=== PATIENT | female | born 1935 | race Two or more races ===

== ENCOUNTER 2017-01-10 15:16 | Inpatient (IN) | payer MEDICAID, MEDICARE ==
[~2017-01-10] VITALS: Ht 165.1 cm; Wt 67.6 kg
--- NOTE | 2017-01-10 18:05 | NUR ---
SPOKE TO SISTER OF PATIENT AND SISTER STATES SHE WILL COME SEE PATIENT TOMORROW
[2017-01-10] MEDS ORDERED: ALBU2.5V38 IH (19:03)
[2017-01-10] MEDS ORDERED: METO25TA6 PO (19:03)
[2017-01-10] MEDS ORDERED: APIX2.5T PO (19:03)
[2017-01-10] MEDS ORDERED: LEVO100T9 PO (19:03)
[2017-01-10] MEDS ORDERED: ACET-868 PO (19:03)
[2017-01-10] MEDS ORDERED: CARB-93 PO (19:03)
[2017-01-10] MEDS ORDERED: VALP250C3 PO (19:03)
[2017-01-10] MEDS ORDERED: LEVE500T9 PO (19:03)
[2017-01-10] MEDS ORDERED: SENN8.6T6 PO (19:03)
[2017-01-10] MEDS ORDERED: CHOL200026 PO (19:03)
[2017-01-10] MEDS ORDERED: OMEG1CAP55 PO (19:03)
[2017-01-10] MEDS ORDERED: MULT-213 PO (19:03)
[2017-01-10] MEDS ORDERED: POLY119P2 PO (19:03)
--- NOTE | 2017-01-10 20:09 | NUR ---
81 Y/O FEMALE, BANGLADESHI SPEAKING ONLY, RESTING COMFORTABLY WITHOUT S/S OF DISTRESS. CONTINUE TO MONITOR.
--- NOTE | 2017-01-10 21:50 | NUR ---
MS/RN NOTES RECEIVED PT. FROM ER VIA ALTAGRACIA. PT. IS AWAKE, ALERT AND ORIENTED X1. BREATHING EVEN AND UNLABORED ON ROOM AIR. NO SOB, RESPIRATORY DISTRESS OR COMPLAINTS OF PAIN NOTED AT THIS TIME. VITAL SIGNS STABLE. ORIENTED PT. TO ROOM. BED LOCKED AND IN LOWEST POSITION, SIDE RAILS UP X3, CALL LIGHT WITHIN REACH. AWAITING ADMITTING ORDERS. WILL CONTINUE TO MONITOR.
--- NOTE | 2017-01-10 23:30 | NUR ---
MS/RN NOTES STILL AWAITING ADMITTING ORDERS. CALLED [facility]. DR. NERI DIDN'T ANSWER, [facility] SPECIAL[facility] STATED THEY WOULD PAGE DR. NERI. . WILL CONTINUE TO WAIT FOR MD TO CALL BACK.
[2017-01-11] MEDS ORDERED: FURO40TA5 PO (00:22)
[2017-01-11] MEDS ORDERED: ONDANSETRON HCL/PF 4 MG/2 ML VIAL IVP PRN (01:00)
[2017-01-11] MEDS ORDERED: ALBUTEROL FS 2.5 MG/3 ML VIAL.NEB IH PRN (01:00)
[2017-01-11] MEDS ORDERED: ACETAMINOPHEN 325 MG TABLET PO PRN (01:00)
[2017-01-11 04:16] VITALS: BP 110/59
--- NOTE | 2017-01-11 06:58 | NUR ---
MS/RN NOTES PT. IS LYING IN BED RESTING. BREATHING EVEN AND UNLABORED ON ROOM AIR. NO SOB, RESPIRATORY DISTRESS OR COMPLAINTS OF PAIN NOTED AT THIS TIME. ALL PT. NEEDS MET. BED LOCKED AND IN LOWEST POSITION, SIDE RAILS UP X3, CALL LIGHT WITHIN REACH. WILL ENDORSE TO DAYSHIFT NURSE FOR CONTINUITY OF CARE.
--- NOTE | 2017-01-11 07:59 | NUR ---
MS/RN OPENING NOTE PATIENT RECEIVED IN BED IN STABLE CONDITION. A/O X 1, WELSH SPEAKING. NO SIGNS OF ACUTE DISTRESS. NO COMPLAIN OF PAIN OR DISCOMFORT. ALL NEEDS ATTENDED TO. CALL LIGHT WITHIN REACH. WILL CONTINUE TO MONITOR TO ENSURE SAFETY.
[2017-01-11 08:00] VITALS: BP 106/59
[2017-01-11] MEDS ORDERED: ALBUTEROL FS 2.5 MG/3 ML VIAL.NEB NEB PRN (08:00)
[2017-01-11 08:49] LABS: BASOPHILS # (AUTO) 0.1 /CMM (0.0-0.2); BASOPHILS % (AUTO) 0.5 % (0.0-2.0); EOSINOPHILS # (AUTO) 1.3 /CMM (0.0-0.7); EOSINOPHILS % (AUTO) 12.7 % (0.0-6.0); HEMATOCRIT 42 % (33-45); HEMOGLOBIN 13.5 g/dL (11.5-14.8); LYMPHOCYTES # (AUTO) 1.5 /CMM (0.8-4.8); LYMPHOCYTES % (AUTO) 14.6 % (20.0-44.0); MEAN CORPUSCULAR HEMOGLOBIN 31 PG (26.0-33.0); MEAN CORPUSCULAR HGB CONC 33 g/dl (31.0-36.0); MEAN CORPUSCULAR VOLUME 95 fL (82-100); MONOCYTES # (AUTO) 1.3 /CMM (0.1-1.30); MONOCYTES % (AUTO) 13.3 % (2.0-12.0); NEUTROPHILS # (AUTO) 5.9 /CMM (1.8-8.9); NEUTROPHILS % (AUTO) 58.9 % (43.0-81.0); PLATELET COUNT (AUTO) 271 /CMM (150-450); RED BLOOD CELL COUNT(AUTO) 4.36 MIL/uL (4.0-5.2)
[2017-01-11] MEDS: METOPROLOL TARTRATE 25 MG TABLET PO SCH ×2 (09:00→17:00)
[2017-01-11 09:06] LABS: ALANINE AMINOTRANSFERASE 18 U/L (12-78); ALBUMIN 2.8 g/dL (3.4-5.0); ALKALINE PHOSPHATASE 93 U/L (46-116); ASPARTATE AMINOTRANSFERASE 33 U/L (15-37); BILIRUBIN,TOTAL 0.3 mg/dL (0.2-1.0); CALCIUM, SERUM 10.8 mg/dL (8.5-10.1); CARBON DIOXIDE 35 mmol/L (21-32); CHLORIDE 104 mmol/L (98-107); CREATININE 2.8 mg/dL (0.6-1.3); GLUCOSE 74 mg/dL (74-106); MAGNESIUM 2.7 mg/dL (1.8-2.4); PHOSPHORUS 4.5 mg/dL (2.5-4.9); POTASSIUM 3.5 mmol/L (3.5-5.1); SODIUM SERUM 147 mmol/L (136-145); TOTAL PROTEIN, SERUM 7.9 g/dL (6.4-8.2); UREA NITROGEN, BLOOD 50 mg/dL (7-18)
[2017-01-11 09:08] LABS: THYROID STIMULATING HORMONE 6.116 uIU/mL (0.358-3.74)
[2017-01-11] MEDS: VALPROIC ACID 250 MG/5 ML UDC PO SCH ×3 (09:18→17:43)
[2017-01-11] MEDS: CHOLECALCIFEROL 1,000 UNIT TABLET (VIT D3) PO SCH (09:18)
[2017-01-11] MEDS: LEVETIRACETAM (250 MG) 250 MG TABLET PO SCH ×2 (09:18→21:29)
[2017-01-11] MEDS: PANTOPRAZOLE 40 MG TABLET.DR PO SCH (09:18)
[2017-01-11] MEDS: MULTIVIT, IRON, MIN NO. 8, FA 1 TAB PO SCH (09:18)
[2017-01-11] MEDS: FUROSEMIDE 40 MG TABLET PO SCH ×2 (09:18→17:00)
[2017-01-11] MEDS: LEVOTHYROXINE SODIUM 100 MCG TABLET PO SCH (09:19)
[2017-01-11] MEDS: CARBIDOPA/LEVODOPA 25/100 MG 1 UDTAB PO SCH ×3 (09:19→17:43)
[2017-01-11] MEDS: POLYETHYLENE GLYCOL 3350 17 GM POWD.PACK PO SCH (09:19)
--- NOTE | 2017-01-11 11:31 | NUR ---
MS/RN SPOKE WITH DR ESTRADA SPOKE WITH DR ESTRADA AND RELAYED PATIENT'S ELECTROLYTE LAB VALUE AND TSH LEVEL WITH NO ORDERS AT THIS TIME.
[2017-01-11] MEDS: APIXABAN 2.5 MG TABLET PO SCH ×2 (12:30→21:29)
[2017-01-11 16:00] VITALS: BP 96/53
--- NOTE | 2017-01-11 18:29 | NUR ---
MS/RN PAGED DAVID TABARES PAGED DR DAVID No OFFICE REGARDING FOR CLARIFICATION OF LASIX ORDER. AWAITING FOR CALL BACK. SPOKE WITH ALIZA FROM DR DAVID No OFFICE, PER ALIZA, SHE WILL PAGE DR DAVID No
--- NOTE | 2017-01-11 18:50 | NUR ---
MS/RN SPOKE WITH DR DAVID Heard. RECEIVED CALL BACK FROM DR DAVID No AND MADE AWARE PER HIS NOTES, TO HOLD LASIX TFO, START IV FLUIDS, AND URINALYSIS BUT NO ORDERS. RECEIVED TELEPHONE ORDER FROM DR DAVID No TO HOLD LASIX TFO, START D5 NS AT 50ML/HR.
--- NOTE | 2017-01-11 18:53 | NUR ---
MS/RN CLOSING NOTE PATIENT IN BED IN STABLE CONDITION. A/O X 1. AMHARIC SPEAKING. NO SIGNS OF ACUTE DISTRESS. NO COMPLAIN OF PAIN OR DISCOMFORT. ALL NEEDS ATTENDED TO. CALL LIGHT WITHIN REACH. WILL ENDORSE TO NEXT SHIFT FOR CONTINUITY OF CARE.
[2017-01-11] MEDS ORDERED: IV D5/ 0.9% NACL 1,000 ML IV ONE (19:00)
--- NOTE | 2017-01-11 19:40 | NUR ---
MS DENNY INITIAL NOTES RECEIVED REPORT FROM AM NURSE SWAPNIL WHILE DOING ROUNDS AT THE SAME TIME. SHE'S LYING IN BED RESTING WITH EYES CLOSED BUT AROUSES TO TOUCH, RESPIRATION EVEN AND NON-LABORED , NOT IN ANY ACUTE DISTRESS NOTED. SKIN WARM AND NOTICED SCALY SKIN AND DRYNESS. NO HEPLOCK AT THIS TIME. YORUBA SPEAKING ONLY. ON SEMI FOWLERS POSITION WITH SIDE RAILS X3 UP AND BED IN LOW AND LOCK IN POSITION. BED ALARM SET FOR SAFETY. KEPT HER WARM AND COMFORTABLE AT ALL TIMES. WILL CONTINUE TO MONITOR.
[2017-01-11 20:00] VITALS: BP 90/50
[2017-01-11] MEDS: SENNOSIDES 8.6 MG TABLET PO SCH (21:29)
--- NOTE | 2017-01-12 07:30 | NUR ---
MS RN OPENING NOTES. PT RECEIVED A&0X3 HOWEVER DURING DISCUSSION PT PRESENTS A LITTLE CONFUSED. PT RESTING LOW SEMI FOWLERS WITH BED IN LOWEST LOCKED POSITION WITH CALL CONNELL WITHIN REACH. PT TOLERATING ROOM AIR WITH NO SOB. PT REPORTING NO PAIN AND IS WITH NO OBVIOUS S/S OF DISTRESS OR DISCOMFORT. PT WITH IVC AT RIGHT HAND G#24 INTACT AND OPERATIONAL. PT BRIEFED ON TODAY'S POC AND IS WITHOUT CONCERN OR COMPLAINT AT THIS TIME.
--- NOTE | 2017-01-12 07:34 | NUR ---
TANK BUILDER HELPER/CLOSING NOTES PT BACK TO SLEEP AFTER MORNING CARE DONE. IVF STILL INFUSING ON HER RIGHT HAND PATENT AND INTACT. STABLE TERE THE NIGHT AND NO SIGNS OF ANY ACUTE DISTRESS OR ANY DISCOMFORT NOTED. KEPT HER WARM AND COMFORTABLE AT ALL TIMES. ON SEMI FOWLERS POSITION WITH SIDE RAILS X3 UP AND BED ALARM SET FOR SAFETY. PLACE CALL LIGHT AT REACH. ENDORSE TO AM NURSE VALIENTE FOR CONTINUITY OF CARE.
[2017-01-12 08:00] VITALS: BP 91/61
[2017-01-12] MEDS: PANTOPRAZOLE 40 MG TABLET.DR PO SCH (08:40)
[2017-01-12] MEDS: LEVOTHYROXINE SODIUM 100 MCG TABLET PO SCH (08:40)
[2017-01-12] MEDS: LEVETIRACETAM (250 MG) 250 MG TABLET PO SCH ×2 (08:42→21:31)
[2017-01-12] MEDS: VALPROIC ACID 250 MG/5 ML UDC PO SCH ×3 (08:42→18:18)
[2017-01-12] MEDS: CARBIDOPA/LEVODOPA 25/100 MG 1 UDTAB PO SCH ×3 (08:43→17:00)
[2017-01-12] MEDS: POLYETHYLENE GLYCOL 3350 17 GM POWD.PACK PO SCH (08:45)
[2017-01-12] MEDS: APIXABAN 2.5 MG TABLET PO SCH ×2 (08:59→21:31)
[2017-01-12] MEDS: MULTIVIT, IRON, MIN NO. 8, FA 1 TAB PO SCH (08:59)
[2017-01-12] MEDS: METOPROLOL TARTRATE 25 MG TABLET PO SCH ×2 (09:00→17:30)
--- NOTE | 2017-01-12 09:34 | NUR ---
MS RN NOTES. VIT D NOT AVAILABLE. PHARMACY AWARE. WILL ADMIN WHEN AVAILABLE.
[2017-01-12] MEDS: CHOLECALCIFEROL 1,000 UNIT TABLET (VIT D3) PO SCH (11:59)
[2017-01-12 12:12] LABS: CALCIUM, SERUM 10.5 mg/dL (8.5-10.1); CARBON DIOXIDE 34 mmol/L (21-32); CHLORIDE 100 mmol/L (98-107); CREATININE 2.8 mg/dL (0.6-1.3); GLUCOSE 127 mg/dL (74-106); POTASSIUM 3.6 mmol/L (3.5-5.1); SODIUM SERUM 142 mmol/L (136-145); UREA NITROGEN, BLOOD 45 mg/dL (7-18)
[2017-01-12 16:00] VITALS: BP 98/60
--- NOTE | 2017-01-12 18:19 | NUR ---
RN NOTES. PT REFUSING 1700 MEDS. EXPLAINED WITH TRANSLATION THE RISK BENEFITS OF NON COMPLIANCE, PT STILL REFUSES. ASKED AGAINX3 OVER 1 HOUR. PT STILL REFUSING.
--- NOTE | 2017-01-12 19:02 | NUR ---
MS RN CLOSING NOTES. PT A&0X2-3, IN GOOD SPIRITS BUT UNCOOPERATIVE. PT TOLERATING ROOM AIR WITH NO SOB. PT REPORTING NO PAIN. PT SKIN IS DRY BUT HAS REFUSED LOTION AT EVERY ENCOUNTER, WOUND CONSULT IS ORDERED. PT WITH IVC AT R HAND INTACT AND SALINE LOCKED. ALL DAY NURSE DUTIES ATTENDED TO. WILL ENDORSE TO NIGHT NURSE.
--- NOTE | 2017-01-12 19:30 | NUR ---
MS CLINICAL TRANSFORMATION SPECIALIST INITIAL NOTES PT RECEIVED REPORT FROM AM NURSE STEFFANIE, AND CHECKED PT SHE'S ALERT WATCHING TV WITH IVF OF D5NS AT 50ML/HR INFUSING ON HER RIGHT HAND PATENT AND INTACT, DENIES ANY PAIN OR ANY DISCOMFORT. BREATHING EVEN AND NON-LABORED , SKIN STILL DRYNESS AND SCALY , WOUND CARE CONSULT HAD BEEN ORDERED AND WILL CHECKED IT JAMES. RE-ORIENTED PT HOW TO USED THE CALL LIGHT SYSTEM AND ENCOURAGE HER TO USED IT IF SHE NEEDS SOME HELPED OR NEEDS THE NURSE. KEPT HER WARM AND COMFORTABLE AT ALL TIMES. PLACE CALL LIGHT AT REACH. WILL CONTINUE TO MONITOR.
[2017-01-12 20:00] VITALS: BP 121/51
[2017-01-12] MEDS: SENNOSIDES 8.6 MG TABLET PO SCH (21:31)
[2017-01-13] VITALS (7 sets, daily range): BP systolic 86–108; BP diastolic 42–66
--- NOTE | 2017-01-13 02:29 | NUR ---
MS REGULATOR INSPECTOR/NOTES PT SLEEPING COMFORTABLY IN BED WITH NO SIGNS OF ANY ACUTE DISTRESS NOTED. KEPT HER WARM AND COMFORTABLE AT ALL TIMES. WILL CONTINUE TO MONITOR,.PLACE CALL LIGHT AT REACH.
--- NOTE | 2017-01-13 06:56 | NUR ---
MS HEALTH PROMOTION OFFICER CLOSING NOTES PT BACK TO REST AFTER MORNING CARE DONE .SLEPT WELL AND STABLE TERE THE NIGHT. ALL DUE MEDS GIVEN AND ALL NEEDS MET. KEPT HER WARM AND COMFORTABLE AT ALL TIMES. ON SEMI FOWLERS POSITION WITH SIDE RAILS UP X3 AND BED ALARM SET FOR SAFETY. WILL ENDORSE TO AM NURSE FOR CONTINUITY OF CARE.
--- NOTE | 2017-01-13 07:30 | NUR ---
MS RN OPENING RECEIVED PATIENT AWAKE. DENIES PAIN SOB, DIFFICULTY BREATHING. PATIENT SKIN VERY DRY AND PEELING ALL OVER BODY. PENDING WOUND CARE CONSULT. PATIENT STATES SHE HAS USED MANY CREAMS IN THE PAST AND NOTHING HAS HELPED. WILL ROUND Q2H OR LESS PER NEEDS. PATIENT BED LOWERED AND LOCKED, RAILS UPX3 FOR SAFETY NEEDS IN REACH.
[2017-01-13 07:38] LABS: CALCIUM, SERUM 9.9 mg/dL (8.5-10.1); CARBON DIOXIDE 34 mmol/L (21-32); CHLORIDE 103 mmol/L (98-107); CREATININE 2.6 mg/dL (0.6-1.3); GLUCOSE 73 mg/dL (74-106); POTASSIUM 3.5 mmol/L (3.5-5.1); SODIUM SERUM 143 mmol/L (136-145); UREA NITROGEN, BLOOD 40 mg/dL (7-18)
[2017-01-13] MEDS: POLYETHYLENE GLYCOL 3350 17 GM POWD.PACK PO SCH (08:24)
[2017-01-13] MEDS: LEVOTHYROXINE SODIUM 100 MCG TABLET PO SCH (08:24)
[2017-01-13] MEDS: PANTOPRAZOLE 40 MG TABLET.DR PO SCH (08:24)
[2017-01-13] MEDS: LEVETIRACETAM (250 MG) 250 MG TABLET PO SCH ×2 (08:24→21:04)
[2017-01-13] MEDS: MULTIVIT, IRON, MIN NO. 8, FA 1 TAB PO SCH (08:24)
[2017-01-13] MEDS: VALPROIC ACID 250 MG/5 ML UDC PO SCH ×3 (08:24→16:40)
[2017-01-13] MEDS: CHOLECALCIFEROL 1,000 UNIT TABLET (VIT D3) PO SCH (08:24)
[2017-01-13] MEDS: METOPROLOL TARTRATE 25 MG TABLET PO SCH ×2 (08:24→17:00)
[2017-01-13] MEDS: CARBIDOPA/LEVODOPA 25/100 MG 1 UDTAB PO SCH ×3 (08:28→16:40)
[2017-01-13] MEDS: APIXABAN 2.5 MG TABLET PO SCH ×2 (08:28→20:54)
[2017-01-13] MEDS ORDERED: VITAMINS A AND D 56.7 GM TUBE TP PRN (14:30)
[2017-01-13] MEDS: NYSTATIN CREAM 15 GM TUBE TP SCH (16:40)
--- NOTE | 2017-01-13 17:33 | NUR ---
MS RN NOTES NOTIFIED MD ESTRADA PATIENT BLOOD PRESSURE LOW AND HR 130'S TO 140'S. PER MD ORDER STAT CBC, BMP, AND STAT EKG. ALSO GIVE 1L NS BOLUS ONCE
[2017-01-13] MEDS ORDERED: IV NS 0.9% 1,000 ML IV ONE (18:00)
--- NOTE | 2017-01-13 18:18 | NUR ---
MS RN NOTES NOTIFIED DR ESTRADA OF EKG AFIB WITH RVR. PER MD TRANSFER TO [facility] AND GIVE AMIO BOLUS THEN PHARMACY TO DOSE DRIP. NOTIFIED MD PATIENT PULLED OUT IV AND UNABLE TO GIVE BOLUS. PER MD OK TO INSERT IV ON FOOT.
[2017-01-13] MEDS ORDERED: AMIODARONE 150 MG in IV D5W 100 ML IV ONE (18:30)
--- NOTE | 2017-01-13 18:40 | NUR ---
UTILITY PORTER NTOES PATIENT TRANSFERED TO [facility] PER MD REQUEST. REPORT GIVEN AND KALIA TRANSFERED
[2017-01-13 18:43] LABS: EOSINOPHILS # (AUTO) 1.3 /CMM (0.0-0.7); EOSINOPHILS % (AUTO) 12.8 % (0.0-6.0); HEMATOCRIT 40 % (33-45); HEMOGLOBIN 13.2 g/dL (11.5-14.8); LYMPHOCYTES # (AUTO) 2.3 /CMM (0.8-4.8); LYMPHOCYTES % (AUTO) 21.7 % (20.0-44.0); MEAN CORPUSCULAR HEMOGLOBIN 31 PG (26.0-33.0); MEAN CORPUSCULAR HGB CONC 33 g/dl (31.0-36.0); MEAN CORPUSCULAR VOLUME 94 fL (82-100); MONOCYTES % (AUTO) 9.1 % (2.0-12.0); NEUTROPHILS # (AUTO) 5.9 /CMM (1.8-8.9); NEUTROPHILS % (AUTO) 56.4 % (43.0-81.0); PLATELET COUNT (AUTO) 272 /CMM (150-450); RDW COEFFICIENT OF VARIATION 13.2 (11.5-15.0); RED BLOOD CELL COUNT(AUTO) 4.23 MIL/uL (4.0-5.2); WHITE BLOOD COUNT (AUTO) 10.5 K/uL (4.3-11.0)
[2017-01-13 18:53] LABS: CALCIUM, SERUM 10.4 mg/dL (8.5-10.1); CARBON DIOXIDE 32 mmol/L (21-32); CHLORIDE 102 mmol/L (98-107); CREATININE 2.5 mg/dL (0.6-1.3); GLUCOSE 82 mg/dL (74-106); POTASSIUM 3.9 mmol/L (3.5-5.1); SODIUM SERUM 143 mmol/L (136-145); UREA NITROGEN, BLOOD 38 mg/dL (7-18)
[2017-01-13] MEDS ORDERED: AMIODARONE 900 MG in IV D5W 482 ML IV PRN (19:00)
--- NOTE | 2017-01-13 19:00 | NUR ---
rn notes bedside report given by rina for continuity of care , placed pt on tele monitor .
--- NOTE | 2017-01-13 19:07 | NUR ---
rn notes received patient transferred from [address] [place] [address] to [facility] td due to afib rvr , aox1-2 [place] Island[place] speaking , not in acute distress , spo2 of 97% via ra , afib 120's 130's on tele monitor , called pharmacy , spoke with jeramy to follow up amiodarone bolus and drip as ordered , per pharmacist they will bring it to room 101 , iv of right fa # 22 patent and intact with ongoing ns bolus via gravity , afebrile , bp of 91/42 , rr of 19 , report given to elmer for continuity of care .
--- NOTE | 2017-01-13 20:29 | NUR ---
RN:TD: PT RECEIVED IN BED ABLE TO FOLLOW COMMANDS. PT TRANSFERRED FROM [facility] DUE TO UNCONTROLLED AFIB WITH RVR. PT FINNISH SPEAKING ONLY. ORDERS RECEIVED BY PREVIOUS SHIFT TO HAVE MIDLINE INSERTED PT HAS POOR VENOUS ACCESS. PT EXPLAINED REGARDING PROCEDURE AND AGREES. MID LINE PLACED IN PT BINDU. AMIO BOLUS GIVEN PER MD ORDERS AND FOLLOWED BY AMIO GTT PER PROTOCOL. PT CONTINUES TO HAVE BORDERLINE LOW BP 88 SYSTOLIC BUT SHE REMAINS ASYMPTOMATIC. PT HR UNCONTROLLED AFIB 130'S-110'S. FALL PRECAUTIONS IN PLACE. WILL CONTINUE TO MONITOR CLOSELY.
[2017-01-13] MEDS: SENNOSIDES 8.6 MG TABLET PO SCH (21:03)
--- NOTE | 2017-01-13 22:36 | NUR ---
RN:TD: PT CONVERTED TO SR-ST AT 2219. VSS. BP 98/46.
[2017-01-14] VITALS: BP 121/64
[2017-01-14] MEDS: VITAMINS A AND D 56.7 GM TUBE TP SCH ×3 (01:48→21:36)
[2017-01-14] MEDS: NYSTATIN CREAM 15 GM TUBE TP SCH ×2 (01:49→17:10)
[2017-01-14 04:00] VITALS: BP 105/36
[2017-01-14 06:30] LABS: BASOPHILS % (AUTO) 0.2 % (0.0-2.0); EOSINOPHILS # (AUTO) 1.4 /CMM (0.0-0.7); EOSINOPHILS % (AUTO) 15.2 % (0.0-6.0); HEMATOCRIT 35 % (33-45); HEMOGLOBIN 11.8 g/dL (11.5-14.8); LYMPHOCYTES # (AUTO) 1.7 /CMM (0.8-4.8); MEAN CORPUSCULAR HEMOGLOBIN 32 PG (26.0-33.0); MEAN CORPUSCULAR HGB CONC 33 g/dl (31.0-36.0); MEAN CORPUSCULAR VOLUME 95 fL (82-100); MONOCYTES # (AUTO) 0.9 /CMM (0.1-1.30); MONOCYTES % (AUTO) 9.4 % (2.0-12.0); NEUTROPHILS # (AUTO) 5.4 /CMM (1.8-8.9); NEUTROPHILS % (AUTO) 57.2 % (43.0-81.0); PLATELET COUNT (AUTO) 248 /CMM (150-450); RED BLOOD CELL COUNT(AUTO) 3.74 MIL/uL (4.0-5.2); WHITE BLOOD COUNT (AUTO) 9.5 K/uL (4.3-11.0)
[2017-01-14 07:21] LABS: CALCIUM, SERUM 9.6 mg/dL (8.5-10.1); CARBON DIOXIDE 31 mmol/L (21-32); CHLORIDE 104 mmol/L (98-107); CREATININE 2.3 mg/dL (0.6-1.3); GLUCOSE 75 mg/dL (74-106); MAGNESIUM 2.3 mg/dL (1.8-2.4); PHOSPHORUS 4.1 mg/dL (2.5-4.9); SODIUM SERUM 142 mmol/L (136-145); UREA NITROGEN, BLOOD 32 mg/dL (7-18)
--- NOTE | 2017-01-14 07:51 | NUR ---
INITIAL [facility] RN NOTE RCVD PT AWAKE AND ALERT TO SELF, ORIENTED TO PLACE, SITUATION AND TIME. SHOWING NO S/O DISTRESS/PAIN AT THIS TIME. PT'S [place] CITIZ[place] SPEAKING ONLY, RN SPEAKS [place]. SR ON TELE. TOLERATING O2 VIA NC. BINDU MIDLINE C/D/I/PATENT. DRESSING APPEARS TO BE PARTIALLY PULLED OUT BY PT. DRESSING SECURED WITH TAPE. CENTRAL DRESSING KIT UNAVAILABLE. LM IN CENTRAL SUPPLY REQUESTING MORE. RFA #22 C/D/I/PATENT. NO S/O INFILTRATION/PHLEBITIS OBSERVED ON EITHER IV SITE. WILL CONTINUE TO MONITOR PT FOR SAFETY AND COMFORT. CALL LIGHT WITHIN REACH. BED IN LOW AND LOCKED POSITION.
[2017-01-14 08:00] VITALS: BP 108/31
[2017-01-14] MEDS: LEVOTHYROXINE SODIUM 100 MCG TABLET PO SCH (08:22)
[2017-01-14] MEDS: LEVETIRACETAM (250 MG) 250 MG TABLET PO SCH ×2 (08:22→21:32)
[2017-01-14] MEDS: PANTOPRAZOLE 40 MG TABLET.DR PO SCH (08:22)
[2017-01-14] MEDS: CHOLECALCIFEROL 1,000 UNIT TABLET (VIT D3) PO SCH (08:22)
[2017-01-14] MEDS: CARBIDOPA/LEVODOPA 25/100 MG 1 UDTAB PO SCH ×3 (08:22→17:10)
[2017-01-14] MEDS: MULTIVIT, IRON, MIN NO. 8, FA 1 TAB PO SCH (08:22)
[2017-01-14] MEDS: VALPROIC ACID 250 MG/5 ML UDC PO SCH ×4 (08:22→17:10)
[2017-01-14] MEDS: APIXABAN 2.5 MG TABLET PO SCH ×2 (08:23→21:33)
[2017-01-14] MEDS: METOPROLOL TARTRATE 25 MG TABLET PO SCH ×2 (09:00→17:00)
--- NOTE | 2017-01-14 09:21 | NUR ---
[facility] RN NOTE BP MEDICATION HELD SBP <110 DBP <50
[2017-01-14 11:11] LABS: THYROID STIMULATING HORMONE 8.007 uIU/mL (0.358-3.74)
[2017-01-14 11:13] LABS: TROPONIN I 0.02 ng/mL (0.00-0.056)
[2017-01-14 12:00] VITALS: BP 99/38
--- NOTE | 2017-01-14 12:11 | NUR ---
[facility] RN NOTE PT'S BROTHER AT BEDSIDE UPDATED ON PT'S CONDITION. QUESTIONS ANSWERED. WILL CONTINUE TO MONITOR PT.
[2017-01-14] MEDS: POLYETHYLENE GLYCOL 3350 17 GM POWD.PACK PO SCH (12:35)
[2017-01-14 16:00] VITALS: BP 100/41
--- NOTE | 2017-01-14 17:52 | NUR ---
[facility] SHARPSHINGLE INSPECTOR NOTE BP MEDICATION HELD 100/41 WILL CONTINUE TO MONITOR. Addendum: 01/14/17 at 1849 by SHANA OROZCO RN ADDENDUM PT REFUSED TO TAKE THE DEPAKENE. MEDICATION WASTED.
--- NOTE | 2017-01-14 18:49 | NUR ---
[facility] RN NOTE PT REMAINS STABLE, SHOWING NO S/O DISTRESS/PAIN. SR WITH 1st AVB ON TELE. PT VOIDING TO DIAPER. IV SITES REMAIN C/D/I/PATENT. NO S/O INFILTRATION/PHLEBITIS OBSERVED UPON FLUSHING. PT'S CARE WILL BE ENDORSED TO UNIT TECHNICIAN RN FOR CONTINUITY OF CARE.
--- NOTE | 2017-01-14 19:30 | NUR ---
INITIAL [facility] RN NOTE RCVD PT AWAKE AND ALERT TO SELF, ORIENTED TO PLACE, SITUATION AND TIME. SHOWING NO S/O DISTRESS/PAIN AT THIS TIME. CONT ON AMIODARONE DRIP DUE TO END @ 9PM, PT WILL BE PLACED ON TEL. PT'S [place] SPEAKING ONLY, TRANSLATION FROM STAFF WILL BE UTILIZED. SR ON TELE. ON R/A WELL ROSIO. BINDU MIDLINE C/D/I/PATENT. DRESSING SECURED WITH TAPE. RFA #22 C/D/I/PATENT. NO S/O INFILTRATION/PHLEBITIS OBSERVED ON EITHER IV SITE. WILL CONTINUE TO MONITOR PT FOR SAFETY AND COMFORT. CALL LIGHT WITHIN REACH. BED IN LOW AND LOCKED POSITION.
[2017-01-14 20:00] VITALS: BP 112/78
[2017-01-14] MEDS: SENNOSIDES 8.6 MG TABLET PO SCH (21:32)
[2017-01-15] VITALS: BP 102/62
[2017-01-15 04:00] VITALS: BP 98/43
[2017-01-15] MEDS: NYSTATIN CREAM 15 GM TUBE TP SCH ×2 (04:57→12:10)
[2017-01-15 05:55] LABS: BASOPHILS % (AUTO) 0.3 % (0.0-2.0); EOSINOPHILS # (AUTO) 1.2 /CMM (0.0-0.7); EOSINOPHILS % (AUTO) 12.7 % (0.0-6.0); HEMATOCRIT 36 % (33-45); HEMOGLOBIN 12.2 g/dL (11.5-14.8); LYMPHOCYTES # (AUTO) 1.4 /CMM (0.8-4.8); LYMPHOCYTES % (AUTO) 15.1 % (20.0-44.0); MEAN CORPUSCULAR HEMOGLOBIN 32 PG (26.0-33.0); MEAN CORPUSCULAR HGB CONC 34 g/dl (31.0-36.0); MEAN CORPUSCULAR VOLUME 94 fL (82-100); MONOCYTES # (AUTO) 0.7 /CMM (0.1-1.30); MONOCYTES % (AUTO) 7.9 % (2.0-12.0); NEUTROPHILS # (AUTO) 5.9 /CMM (1.8-8.9); PLATELET COUNT (AUTO) 251 /CMM (150-450); RDW COEFFICIENT OF VARIATION 13.2 (11.5-15.0); RED BLOOD CELL COUNT(AUTO) 3.84 MIL/uL (4.0-5.2); WHITE BLOOD COUNT (AUTO) 9.2 K/uL (4.3-11.0)
[2017-01-15] MEDS: AMIODARONE HCL 200 MG TABLET PO SCH ×3 (06:00→12:09)
[2017-01-15] MEDS: VITAMINS A AND D 56.7 GM TUBE TP SCH ×2 (06:20→12:10)
[2017-01-15 06:21] LABS: ALBUMIN 2.4 g/dL (3.4-5.0); ALKALINE PHOSPHATASE 81 U/L (46-116); BILIRUBIN,TOTAL 0.3 mg/dL (0.2-1.0); CALCIUM, SERUM 9.7 mg/dL (8.5-10.1); CARBON DIOXIDE 32 mmol/L (21-32); CHLORIDE 104 mmol/L (98-107); CREATININE 2.3 mg/dL (0.6-1.3); GLUCOSE 69 mg/dL (74-106); MAGNESIUM 2.2 mg/dL (1.8-2.4); PHOSPHORUS 3.5 mg/dL (2.5-4.9); POTASSIUM 3.9 mmol/L (3.5-5.1); SODIUM SERUM 142 mmol/L (136-145); TOTAL PROTEIN, SERUM 6.9 g/dL (6.4-8.2); UREA NITROGEN, BLOOD 27 mg/dL (7-18)
--- NOTE | 2017-01-15 06:25 | NUR ---
INITIAL SUPPLY CATALOGUER NOTE ENDORSED PT AWAKE AND ALERT TO SELF, ORIENTED TO PLACE, SITUATION AND TIME. SHOWING NO S/O DISTRESS/PAIN AT THIS TIME. S/P AMIODARONE DRIP DUE TO END @ 9PM, PT. AM AMIDARONE HELD BP LOW 98/43 PLACED ON TEL. PT'S [place]URK[place] SPEAKING ONLY, TRANSLATION FROM STAFF WILL BE UTILIZED. SR ON TELE. ON R/A WELL ROSIO. BINDU MIDLINE C/D/I/PATENT. DRESSING SECURED WITH TAPE. RFA #22 C/D/I/PATENT. NO S/O INFILTRATION/PHLEBITIS OBSERVED ON EITHER IV SITE. WILL CONTINUE TO MONITOR PT FOR SAFETY AND COMFORT. CALL LIGHT WITHIN REACH. BED IN LOW AND LOCKED POSITION. Addendum: 01/15/17 at 0629 by JOSE CANDELARIA RN CLOSING NOTES TELE
[2017-01-15 06:46] LABS: ALANINE AMINOTRANSFERASE 14 U/L (12-78); ASPARTATE AMINOTRANSFERASE 27 U/L (15-37)
--- NOTE | 2017-01-15 07:33 | NUR ---
TELE/RN OPENING NOTE PATIENT RECEIVED IN BED IN STABLE CONDITION. A/O X 1. ITALIAN SPEAKING. NO SIGNS OF ACUTE DISTRESS. NO COMPLAIN OF PAIN OR DISCOMFORT. ON TELE MONITOR WITH SINUS RHYTHM. ALL NEEDS ATTENDED TO. CALL LIGHT WITHIN REACH. WILL CONTINUE TO MONITOR TO ENSURE SAFETY.
[2017-01-15 08:00] VITALS: BP 98/61
[2017-01-15] MEDS: METOPROLOL TARTRATE 25 MG TABLET PO SCH (09:00)
[2017-01-15] MEDS: POLYETHYLENE GLYCOL 3350 17 GM POWD.PACK PO SCH (09:05)
[2017-01-15] MEDS: VALPROIC ACID 250 MG/5 ML UDC PO SCH ×2 (09:05→12:09)
[2017-01-15] MEDS: CHOLECALCIFEROL 1,000 UNIT TABLET (VIT D3) PO SCH (09:05)
[2017-01-15] MEDS: LEVOTHYROXINE SODIUM 100 MCG TABLET PO SCH (09:05)
[2017-01-15] MEDS: CARBIDOPA/LEVODOPA 25/100 MG 1 UDTAB PO SCH ×2 (09:06→12:09)
[2017-01-15] MEDS: LEVETIRACETAM (250 MG) 250 MG TABLET PO SCH (09:06)
[2017-01-15] MEDS: MULTIVIT, IRON, MIN NO. 8, FA 1 TAB PO SCH (09:06)
[2017-01-15] MEDS: PANTOPRAZOLE 40 MG TABLET.DR PO SCH (09:06)
[2017-01-15] MEDS: APIXABAN 2.5 MG TABLET PO SCH (09:15)
[2017-01-15 09:58] VITALS: BP 98/61
[2017-01-15] MEDS ORDERED: AMIO200T7 PO (11:43)
[2017-01-15 12:11] VITALS: BP 105/65
--- NOTE | 2017-01-15 14:58 | NUR ---
TELE/BASKET MAKER PATIENT DISCHARGE TO [facility] IN STABLE CONDITION. A/O X 1. INDONESIAN SPEAKING. NO SIGNS OF ACUTE DISTRESS. NO COMPLAIN OF PAIN OR DISCOMFORT. DISCHARGE INSTRUCTION AND EDUCATION PROVIDED TO PATIENT, UNABLE TO COMPREHEND. REPORT GIVEN TO NURSE FROM SN[facility]. NAME BAND AND IV LINE REMOVED. LEFT IN STABLE CONDITION VIA GURNEY ACCOMPANIED BY 2 electronic engraver.
== END 2017-01-15 14:35 | DRG 816 ==
LOC: EDBD 15:17 → ER 15:17 → MED 21:28 → TELE1 01-13 18:56 → TELE-TD 01-13 19:59 → TELE1 01-14 21:16 → MEDSG1 01-15 10:16
PROVIDERS: ADMIT Internal Medicine; ATTEND Internal Medicine
DX: T59.811A Toxic effect of smoke, accidental (unintentional), initial encounter (principal); J96.01 Acute respiratory failure with hypoxia; N17.0 Acute kidney failure with tubular necrosis; N18.4 Chronic kidney disease, stage 4 (severe); D68.59 Other primary thrombophilia; D69.2 Other nonthrombocytopenic purpura; I13.0 Hypertensive heart and chronic kidney disease with heart failure and stage 1 through stage 4 chronic kidney disease, or unspecified chronic kidney disease; I50.32 Chronic diastolic (congestive) heart failure; F03.90 Unspecified dementia, unspecified severity, without behavioral disturbance, psychotic disturbance, mood disturbance, and anxiety; G20 Parkinson's disease; E83.52 Hypercalcemia; Y92.129 Unspecified place in nursing home as the place of occurrence of the external cause; E03.9 Hypothyroidism, unspecified; J45.909 Unspecified asthma, uncomplicated; Z87.891 Personal history of nicotine dependence; I25.10 Atherosclerotic heart disease of native coronary artery without angina pectoris; I48.91 Unspecified atrial fibrillation; K59.00 Constipation, unspecified; G40.909 Epilepsy, unspecified, not intractable, without status epilepticus; E86.9 Volume depletion, unspecified; L98.8 Other specified disorders of the skin and subcutaneous tissue; R21 Rash and other nonspecific skin eruption; S81.801A Unspecified open wound, right lower leg, initial encounter; X58.XXXA Exposure to other specified factors, initial encounter; Y93.9 Activity, unspecified
CPT/HCPCS: 36415; 71010-TC; 80048-TC; 80053-TC; 83735-TC; 83970; 84100-TC; 84439-TC; 84443-TC; 84484-TC; 85025-TC; 87081-TC; 93307-TC; A4606; A6402; J0282; J7030; J7042; J7060; Z7610